=== PATIENT | male | born 1990 | race Caucasian/White ===

== ENCOUNTER 2018-08-18 11:58 | Emergency (ER) | payer BC ==
[~2018-08-18] VITALS: Ht 203.2 cm; Wt 152.0 kg
[2018-08-18 12:03] VITALS: BP 159/76
--- NOTE | 2018-08-18 12:12 | NUR ---
BIB WITH C/O HIP PAIN X 3 DAY. 8/10 PAIN SCALE, NO TRAUMA/OR INJURY . DENIES N/V/D; SKIN IS PINK/WARM/DRY; AAOX4; LUNGS CLEAR BL; HR EVEN AND REGULAR; PT DENIES ANY FEVER, CP, SOB, OR COUGH AT THIS TIME; PATIENT STATES PAIN OF 8/10 AT THIS TIME; VSS; PATIENT POSITIONED FOR COMFORT; HOB ELEVATED; BEDRAILS UP X2; BED DOWN. ER MD MADE AWARE OF PT STATUS.
[2018-08-18] MEDS ORDERED: KETOROLAC 60 MG/2 ML VIAL IM ONE (12:15)
[2018-08-18 13:25] VITALS: BP 138/75
--- NOTE | 2018-08-18 13:26 | NUR ---
Patient discharged with v/s stable. Written and verbal after care instructions given and explained. Patient alert, oriented and verbalized understanding of instructions. Ambulatory with steady gait. All questions addressed prior to discharge. ID band removed. Patient advised to follow up with PMD. Rx of morco and motrin given. Patient educated on indication of medication including possible reaction and side effects. Opportunity to ask questions provided and answered.
== END 2018-08-18 13:26 | disposition home or self-care (01) ==
LOC: MED 11:58
DX: M25.552 Pain in left hip (principal); F17.210 Nicotine dependence, cigarettes, uncomplicated; Z88.0 Allergy status to penicillin
CPT/HCPCS: 73502; 96372; 99283; J1885

== ENCOUNTER 2020-04-30 12:39 | Emergency (ER) | payer BC, SELFPAY ==
[~2020-04-30] VITALS: Ht 203.2 cm; Wt 158.8 kg
[2020-04-30 12:51] VITALS: BP 149/94
--- NOTE | 2020-04-30 13:25 | NUR ---
COVID SWAB COLLECTED, GIVEN TO LAB.
[2020-04-30 13:33] VITALS: BP 149/94
--- NOTE | 2020-04-30 13:33 | NUR ---
Patient discharged with v/s stable. Written and verbal after care instructions given and explained. Patient verbalized understanding. Ambulatory with steady gait. All questions addressed prior to discharge. Advised to follow up with PMD.
== END 2020-04-30 13:33 | disposition home or self-care (01) ==
LOC: MED 12:39
DX: R03.0 Elevated blood-pressure reading, without diagnosis of hypertension (principal); F17.200 Nicotine dependence, unspecified, uncomplicated; Z88.0 Allergy status to penicillin; Z20.828 Contact with and (suspected) exposure to other viral communicable diseases
CPT/HCPCS: 99283; U0003

== ENCOUNTER 2022-02-27 09:53 | Emergency (ER) | payer SELFPAY ==
[~2022-02-27] VITALS: Ht 203.2 cm; Wt 175.1 kg
[2022-02-27 10:00] VITALS: BP 168/95
--- NOTE | 2022-02-27 10:03 | NUR ---
AMBULATED TO BED 4
--- NOTE | 2022-02-27 10:13 | NUR ---
DR DENNIS AT BEDSIDE FOR EVAL
--- NOTE | 2022-02-27 10:17 | NUR ---
32/ Y/O MALE BIB SELF C/O BILATERAL EAR ACHE SINCE MONDAY, STATES HE WAS SEEN AT URGENT CARE ON MONDAY AND GIVEN RX OF AZITHROMYCIN TABS AND NEOMYCIN DROPS WITH NO RELIEF. DENIES FEVERS, DRAINAGE. DENIES ANY MEDICATION FOR PAIN, DENIES ANY DRAINAGE FROM EARS, LOSS OF HEARING. DENIES COLDS, COUGH OR FEVERS PMH: DENIES ALLERGIES: PENICILLINS Addendum: 02/27/22 at 1027 by KURT NOTED HEARING LOSS IN THE RIGHT EAR
[2022-02-27] MEDS ORDERED: HYDROcodone/APAP 5/325 MG 1 TAB TAB PO ONE (10:20)
[2022-02-27] MEDS ORDERED: amo (10:31)
[2022-02-27] MEDS ORDERED: AZIT250T4 PO (10:31)
[2022-02-27] MEDS ORDERED: IBUP-2213 PO (10:31)
[2022-02-27] MEDS ORDERED: ACET-9525 PO (10:47)
[2022-02-27] MEDS ORDERED: ONDA-188 PO (10:47)
[2022-02-27] MEDS ORDERED: OFLO5SOL27 RIGHT EAR (10:47)
[2022-02-27 11:14] VITALS: BP 131/79
--- NOTE | 2022-02-27 11:15 | NUR ---
Patient discharged with v/s stable. Written and verbal after care instructions given and explained. Patient alert, oriented and verbalized understanding of instructions. Ambulatory with steady gait. All questions addressed prior to discharge. ID band removed. Patient advised to follow up with PMD. Rx of NORCO 5-325, ZITHROMAX, MOTRIN, FLOXIN OT, ZOFRAN ODT given. Patient educated on indication of medication including possible reaction and side effects. Opportunity to ask questions provided and answered.
== END 2022-02-27 11:15 | disposition home or self-care (01) ==
LOC: MED 09:53
DX: H66.91 Otitis media, unspecified, right ear (principal); H60.91 Unspecified otitis externa, right ear; Z88.0 Allergy status to penicillin
CPT/HCPCS: 99283